=== PATIENT | male | born 1960 | race African-American/Black ===

== ENCOUNTER 2019-07-03 14:36 | Outpatient (CLI) | payer OTHER, SELFPAY ==
--- NOTE | ~2019-07-03 | CT_ITS ---
EXAMINATION: CT lung screening DATE: 07/03/2019 15:04 INDICATION: NICOTINE DEPENDENCE TECHNIQUE: Computed tomography (CT) of the chest was performed without intravenous contrast using a l ow-dose lung cancer screening protocol. Patient was scanned in the prone position. Additional 3D ty nstructions utilizing coronal maximum intensity projection (MIP) were performed. Automated exposure c ontrol and iterative reconstruction technique were employed. The dose-length product was 261.32 mGy-c m. COMPARISON: None FINDINGS: Calcified nodule in the right middle lobe along with calcified right hilar and mediastinal lymph node s and a small splenic obscuration, all consistent with old granulomatous disease. Lungs are otherwise clear with no other pulmonary nodules, pneumonia, pulmonary edema or pleural effusion. Heart size is normal. Small amount of atherosclerotic coronary artery calcification. No pericardial effusion. Thor acic aorta is normal. No pathologically enlarged thoracic lymphadenopathy. Visualized upper abdomen i s unremarkable. Moderate disc height loss with vacuum phenomena at T6-T7. Otherwise minimal to mild d egenerative skeletal changes. IMPRESSION: 1. Lung-RADS category 1: Negative. Continue annual screening with noncontrast low-dose chest CT in 12 months. Reviewed, dictated and finalized at location A. NEY BUILDER BRICK IMPRESSION: 1. Lung-RADS category 1: Negative. Continue annual screening with noncontrast l ow-dose chest CT in 12 months.
== END 2019-07-03 14:37 | disposition home or self-care (01) ==
LOC: ANHIMG 14:45
PROVIDERS: PCP Family Medicine; Visit Provider Nurse Practitioner Family
DX: Z12.2 Encounter for screening for malignant neoplasm of respiratory organs (principal); Z87.891 Personal history of nicotine dependence
CPT/HCPCS: G0297

== ENCOUNTER 2019-07-23 08:27 | Outpatient (CLI) | payer OTHER, SELFPAY ==
--- NOTE | 2019-07-23 | ECHO_ITS ---
Patient Info Name: Amador Blanchard Age: 59 years : 1960 Gender: Male Ht: 75 in Wt: 245 lbs BSA: 2.45 m2 HR: 74 bpm BP: 153 / 108 mmHg Heart Rhythm: Sinus Rhythm Technical Quality: Fair Exam Date: 07/23/2019 9:06 AM Exam Location: [facility] Patient Status: Outpatient Admit Date: 07/23/2019 Staff Ordering Physician: Sana, Amanda Mak APRN Blood Splatter Analyst: Lilian Keene RDCS Attending Provider: Amelie, Amanda Mak APRN Referring Physician: Sana ROSALES; Exam Type: CA echo doppler color flow Study Info Indications I11.0 - Hypertensive heart disease with heart failure Complete two-dimensional, color flow and Doppler transthoracic echocardiogram is performed. Summary 1. Left ventricular chamber dimension is mildly enlarged. 2. Left ventricular systolic function is mildly reduced, estimated at 50-55%. 3. There is mildly increased left ventricular wall thickness. 4. Left ventricular septal wall motion is normal. 5. The left ventricular diastolic function is normal. 6. Right ventricular chamber dimension is mildly enlarged. 7. Left atrial chamber dimension is mildly enlarged. 8. There is mild pulmonic regurgitation. 9. Mild pulmonary hypertension, estimated pulmonary arterial systolic pressure is 43 mmHg. 10. There is mild tricuspid valve regurgitation. 11. There is mild mitral valve regurgitation. 12. There is mild aortic valve regurgitation. 13. The aortic root size at the sinus of Valsalva is mildly dilated. Left Ventricle Left ventricular chamber dimension is mildly enlarged. Left ventricular systolic function is mildly reduced, estimated at 50-55%. There is mildly increased left ventricular wall thickness. Left ventricular septal wall motion is normal. The left ventricular diastolic function is normal. Right Ventricle Right ventricular chamber dimension is mildly enlarged. Right ventricular systolic function is normal. Left Atria Left atrial chamber dimension is mildly enlarged. Right Atria Right atrial chamber dimension is normal. Atrial Septum Intact interatrial septum visualized by color flow imaging. Aortic Valve The aortic valve is trileaflet. There is no aortic valve sclerosis. There is no aortic valve stenosis. There is mild aortic valve regurgitation. Pulmonic Valve The pulmonic valve is normal. There is no pulmonic valve stenosis. There is mild pulmonic regurgitation. Mitral Valve The mitral valve has normal leaflets. There is no mitral valve stenosis. There is mild mitral valve regurgitation. Tricuspid Valve The tricuspid valve leaflets are normal. There is no significant tricuspid valve stenosis. There is mild tricuspid valve regurgitation. Mild pulmonary hypertension, estimated pulmonary arterial systolic pressure is 43 mmHg. Pericardium/Pleural The pericardium appears normal. There is trivial pericardial effusion. Aorta The aortic root size at the sinus of Valsalva is mildly dilated. Left Ventricular Outflow Tract Name Value Normal LVOT 2D LVOT Diameter 2.1 cm LVOT Doppler LVOT Peak Velocity 103 cm/s
--- NOTE | 2019-07-23 | EST_ITS ---
Patient Info Name: Amador Blanchard Age: 59 years : 1960 Gender: Male Ht: 75 in Wt: 250 lbs BSA: 2.48 m2 HR: 62 bpm BP: 139 / 99 mmHg Heart Rhythm: Sinus Rhythm Exam Date: 07/23/2019 10:18 AM Exam Location: [facility] Stress Admit Date: 07/23/2019 Staff Attending Provider: TASHA ANNE NP Referring Physician: CONNIE Hood Amanda Mak; Exercise Technologist: Lilian Keene RDCS Nurse: Tasha Anne, ANP, ACNP- Exam Type: CA stress test treadmill Study Info Indications R07.9 - Chest pain, unspecified A treadmill exercise stress test was performed. Summary 1. Please correlate with nuclear medicine images, reported separately. 2. Poor exercise tolerance. 3. Sub maximal exercise stress test as he was only able to complete 79% of maximum predicted heart rate for age. Borderline ST segment depressions inferiorly were seen. 4. Hypertensive blood pressure response. 5. Due to his borderline EKG abnormalities and with submaximal workload and poor exercise capacity, consider repeating ischemic evaluation using a different modality such as Lexiscan myocardial perfusion study. Protocol: Thom Stress ECG Details Stage: REST Duration (min): 10 min : 26 sec Speed (mph): 0.0 Grade (%): 0 HR (bpm): 73 SBP (mmHg): 139 DBP (mmHg): 99 METS: --- Stage: REST Duration (min): 14 min : 13 sec Speed (mph): 0.0 Grade (%): 0 HR (bpm): 76 SBP (mmHg): 139 DBP (mmHg): 99 METS: --- Stage: STAGE 1 Duration (min): 1 min : 0 sec Speed (mph): 1.7 Grade (%): 10 HR (bpm): 107 SBP (mmHg): 139 DBP (mmHg): 99 METS: --- Stage: STAGE 1 Duration (min): 2 min : 0 sec Speed (mph): 1.7 Grade (%): 10 HR (bpm): 124 SBP (mmHg): 139 DBP (mmHg): 99 METS: --- Stage: STAGE 1 Duration (min): 2 min : 41 sec Speed (mph): 1.7 Grade (%): 10 HR (bpm): 123 SBP (mmHg): 197 DBP (mmHg): 117 METS: --- Stage: RECOVERY Duration (min): 0 min : 19 sec Speed (mph): 0.0 Grade (%): 0 HR (bpm): 122 SBP (mmHg): 197 DBP (mmHg): 117 METS: --- Stage: RECOVERY Duration (min): 1 min : 19 sec Speed (mph): 0.0 Grade (%): 0 HR (bpm): 95 SBP (mmHg): 199 DBP (mmHg): 98 METS: --- Stage: RECOVERY Duration (min): 2 min : 19 sec Speed (mph): 0.0 Grade (%): 0 HR (bpm): 86 SBP (mmHg): 199 DBP (mmHg): 98 METS: --- Stage: RECOVERY Duration (min): 3 min : 19 sec Speed (mph): 0.0 Grade (%): 0 HR (bpm): 88 SBP (mmHg): 186 DBP (mmHg): 96 METS: --- Stage: RECOVERY Duration (min): 4 min : 19 sec Speed (mph): 0.0 Grade (%): 0 HR (bpm): 83 SBP (mmHg): 186 DBP (mmHg): 96 METS: --- Stage: RECOVERY Duration (min): 5 min : 19 sec Speed (mph): 0.0 Grade (%): 0 HR (bpm): 86 SBP (mmHg): 172 DBP (mmHg): 98 METS: --- Stage: RECOVERY Duration (min): 6 min : 19 sec Speed (mph): 0.0 Gr
== END 2019-07-23 08:28 | disposition home or self-care (01) ==
PROVIDERS: PCP Family Medicine; Visit Provider Nurse Practitioner Family
DX: I11.0 Hypertensive heart disease with heart failure (principal); R07.9 Chest pain, unspecified; I08.3 Combined rheumatic disorders of mitral, aortic and tricuspid valves
CPT/HCPCS: 93017; 93306

== ENCOUNTER 2020-02-18 12:19 | Outpatient (CLI) | payer OTHER, SELFPAY ==
[2020-02-18 12:42] LABS: Basophils Percent Auto 0.6 % (0.2-1.2); Eosinophils Absolute Auto 0.1 K/mm3 (0-0.3); Eosinophils Percent Auto 1.7 % (0-4.4); Hematocrit 46.4 % (42.0-52.0); Immature Granulocyte Absolute 0.02 K/mm3 (0.00-0.031); Immature Granulocyte Percent A 0.3 % (0-0.5); Lymphocytes Absolute Auto 1.82 K/mm3 (0.9-3.2); Lymphocytes Percent Auto 28.4 % (18.3-44.2); Mean Corpuscular HGB Conc 34.5 g/dl (32-36); Mean Corpuscular Hemoglobin 32.3 pg (26-34); Mean Corpuscular Volume 93.5 fl (80-100); Mean Platelet Volume 10.2 fl (7.4-10.4); Monocytes Absolute Auto 0.5 K/mm3 (0.1-0.6); Monocytes Percent Auto 8.3 % (2.6-8.5); Neutrophils Absolute Auto 3.9 K/mm3 (1.3-6.7); Neutrophils Percent Auto 60.7 % (45.5-73.1); Platelet Count Result 193 k/mm3 (150-375); Red Blood Count 4.96 M/mm3 (4.6-6.20); White Blood Count 6.4 K/mm3 (4.5-10.0)
[2020-02-18 12:53] LABS: Alanine Aminotransferase 40 U/L (4-50); Albumin Level 4.2 g/dL (3.5-5.1); Alkaline Phosphatase 55 U/L (38-126); Anion Gap 4 mmol/L (8-16); Aspartate Amino Transferase 38 U/L (17-59); Bilirubin,Total 0.7 mg/dL (0.2-1.3); Blood Urea Nitrogen 8 mg/dL (9-20); Calcium 9.3 mg/dL (8.4-10.2); Carbon Dioxide 31 mmol/L (22-30); Chloride 102 mmol/L (98-107); Cholesterol 138 mg/dL (0-200); Estimated Glomerular Filt Rate > 60; Glucose 105 mg/dL (75-110); HDL Direct 43 mg/dL; Potassium 3.9 mmol/L (3.4-5.0); Sodium 137 mmol/L (137-145); Triglycerides 114 mg/dL (<150)
[2020-02-18 13:04] LABS: LDL Cholesterol Direct 70 mg/dL
[2020-02-18 13:13] LABS: Creatinine Urine 35.8 mg/dL
[2020-02-18 13:24] LABS: Prostate Specific Antigen 1.1 ng/mL (< OR = 4.0)
[2020-02-18 13:37] LABS: MALB Creatinine Ratio < 16.8 mg/g (0-30); Microalbumin Urine Random < 6.0 mg/L (0-16.7)
[2020-02-18 13:41] LABS: Free T4 Free Thyroxine 1.04 ng/mL (0.78-2.19); Vitamin D 25 Hydroxy 78.8 ng/mL
== END 2020-02-18 12:20 | disposition home or self-care (01) ==
PROVIDERS: PCP Family Medicine; Visit Provider Nurse Practitioner Family
DX: I50.32 Chronic diastolic (congestive) heart failure (principal); I11.0 Hypertensive heart disease with heart failure; E78.00 Pure hypercholesterolemia, unspecified; Z12.5 Encounter for screening for malignant neoplasm of prostate; R53.83 Other fatigue; Z00.00 Encounter for general adult medical examination without abnormal findings; Z13.0 Encounter for screening for diseases of the blood and blood-forming organs and certain disorders involving the immune mechanism; Z13.6 Encounter for screening for cardiovascular disorders; Z13.220 Encounter for screening for lipoid disorders; Z13.29 Encounter for screening for other suspected endocrine disorder; R80.9 Proteinuria, unspecified; E55.9 Vitamin D deficiency, unspecified
CPT/HCPCS: 36415; 80053; 80061; 82043; 82306; 84153; 84439; 84443; 84480; 85025; G0103

== ENCOUNTER → 2020-12-25 03:53 | Outpatient (CLI) | payer OTHER, SELFPAY ==
[2020-12-25 18:52] LABS: SARS-CoV-2 RNA PCR Negative
== END ==
PROVIDERS: PCP Family Medicine; Visit Provider Family Medicine
DX: R68.89 Other general symptoms and signs (principal); Z20.822 Contact with and (suspected) exposure to COVID-19
CPT/HCPCS: C9803; U0003; U0005

== ENCOUNTER 2021-06-18 15:35 | Outpatient (CLI) | payer OTHER, SELFPAY ==
--- NOTE | ~2021-06-18 | XR_ITS ---
EXAMINATION: XR chest 2V DATE: 06/18/2021 16:14 INDICATION: Mass of the left axilla TECHNIQUE: PA and lateral views of the chest are obtained. COMPARISON: 11/20/2014 FINDINGS: The lungs are free of acute opacities. There is no pleural effusion or pneumothorax. The ca rdiomediastinal silhouette is normal. There is moderate thoracic spondylosis. A calcified nodule of t he right middle lobe is consistent with old granulomatous disease. IMPRESSION: 1. No acute cardiopulmonary abnormality. Reviewed, dictated and finalized at location F. URETOR EXPERT
--- NOTE | ~2021-06-18 | CT_ITS ---
EXAMINATION: CT diagnostic chest w con DATE: 06/18/2021 16:29 INDICATION: Mass of the left axilla TECHNIQUE: Transaxial computed tomographic images of the chest were obtained after the administration of 75 cc of Omnipaque 350 intravenous contrast. The dose-length product (DLP) was 317.38 mGy-cm. Ite rative reconstruction was used. COMPARISON: 07/23/2019 FINDINGS: There is a 3.7 x 2.6 cm fat attenuation mass in the left trapezius which likely accounts fo r the left axillary mass in question. There is mild emphysema. Calcified pulmonary nodules and calcif ied right hilar and mediastinal lymph nodes are consistent with old granulomatous disease. The lungs are free of acute opacities. There is no pleural effusion or pneumothorax. No pathologically enlarged thoracic lymph nodes are identified. The heart size is normal. There is mild thoracic spondylosis. IMPRESSION: 1. Intramuscular lipoma of the left trapezius likely accounting for the left ax[facility] Reviewed, dictated and finalized at location F. CTORY COMPILER IMPRESSION: 1. Intramuscular lipoma of the left trapezius likely accounting for the left ax illary mass in question.
[2021-06-18 16:22] LABS: Estimated Glomerular Filt Rate > 60
== END 2021-06-18 15:36 | disposition home or self-care (01) ==
PROVIDERS: PCP Family Medicine
DX: N63.32 Unspecified lump in axillary tail of the left breast (principal); M47.814 Spondylosis without myelopathy or radiculopathy, thoracic region
CPT/HCPCS: 71046; 71260; Q9967

== ENCOUNTER 2022-07-27 13:14 | Outpatient (CLI) | payer OTHER, SELFPAY ==
--- NOTE | 2022-07-27 | ECG_ITS ---
Measurements Intervals [place] Rate: 61 P: 74 WY: 179 QRS: 10 QRSD: 102 T: 38 QT: 417 QTc: 421 Interpretive Statements SINUS RHYTHM NORMAL ECG NO PREVIOUS ECG AVAILABLE FOR COMPARISON Electronically Signed On 07-27-2022 14:55:47 [facility] by Jon Alex D.O.
--- NOTE | 2022-07-27 | ECHO_ITS ---
Patient Info Name: Amador Blanchard Age: 62 years : 1960 Gender: Male Ht: 75 in Wt: 246 lbs BSA: 2.45 m2 HR: 70 bpm BP: 163 / 92 mmHg Heart Rhythm: Sinus Rhythm Exam Date: 07/27/2022 2:00 PM Exam Location: [facility] Patient Status: Outpatient Admit Date: 07/27/2022 Staff Ordering Physician: Laura, Peter Staley APRN Yeast Cake Cutter: Hugo Bernstein, KATIE, RT Attending Provider: Diandra, Peter Staley APRN Referring Physician: Laura NOLEN; Exam Type: CA echo doppler color flow Study Info Indications - lightheadedness - Left arm pain R42 - Dizziness and giddiness Complete two-dimensional, color flow and Doppler transthoracic echocardiogram is performed. Strain analysis performed. Summary 1. Complete two-dimensional, color flow and Doppler transthoracic echocardiogram is performed. 2. Left ventricular chamber dimension is normal. 3. Left ventricular systolic function is normal, estimated at 60-65%. 4. There is mildly increased left ventricular wall thickness. 5. Right ventricular systolic function is normal. 6. There is mild aortic valve regurgitation. 7. There is mild mitral valve regurgitation. 8. There is mild tricuspid valve regurgitation. 9. The aortic root size at the sinus of Valsalva is dilated. Left Ventricle Left ventricular chamber dimension is normal. Left ventricular systolic function is normal, estimated at 60-65%. There is mildly increased left ventricular wall thickness. Global longitudinal strain is normal at -19 %. Right Ventricle Right ventricular chamber dimension is normal. Right ventricular systolic function is normal. Left Atria Left atrial chamber dimension is normal. Right Atria Right atrial chamber dimension is normal. Atrial Septum Intact interatrial septum visualized by color flow imaging. Aortic Valve The aortic valve is trileaflet. There is no aortic valve stenosis. There is mild aortic valve regurgitation. Pulmonic Valve The pulmonic valve is not well visualized. Mitral Valve The mitral valve has normal leaflets. There is no mitral valve stenosis. There is mild mitral valve regurgitation. Tricuspid Valve There is mild tricuspid valve regurgitation. Pericardium/Pleural There is no pericardial effusion. Inferior Vena Cava Normal inferior vena cava with >50% collapse upon inspiration consistent with normal right atrial pressure, 3 mmHg. Aorta The aortic root size at the sinus of Valsalva is dilated. Left Ventricular Outflow Tract Name Value Normal LVOT 2D LVOT Diameter 2.1 cm LVOT Doppler LVOT Peak Gradient 3 mmHg LVOT Mean Gradient 2 mmHg LVOT VTI 23 cm LVOT VTI/AV VTI Ratio 0.7 LVOT Stroke Volume 80 ml LVOT CO 4.9 l/min LVOT CI 2.0 l/min/m2 Mitral Valve Name Value Normal
== END 2022-07-27 13:15 | disposition home or self-care (01) ==
PROVIDERS: PCP Family Medicine; Visit Provider Nurse Practitioner Adult Health
DX: M54.6 Pain in thoracic spine (principal); R00.2 Palpitations; I34.0 Nonrheumatic mitral (valve) insufficiency; I35.1 Nonrheumatic aortic (valve) insufficiency; I36.1 Nonrheumatic tricuspid (valve) insufficiency
CPT/HCPCS: 93005; 93306

== ENCOUNTER 2023-10-02 15:28 | Outpatient (CLI) | payer OTHER, SELFPAY ==
--- NOTE | ~2023-10-02 | XR_ITS ---
EXAM: XR knee RT min 4V DATE: 10/02/2023 15:48 HISTORY: RT KNEE SWELLING; HX OF FLUID REMOVED OFF KNEE 3 YRS AGO . COMPARISON: None available. FINDINGS: Normal mineralization. No fracture or dislocation. No lytic or blastic lesion. Mild tricom partmental osteophytosis. Mild patellar enthesopathy. Trace joint fluid. No erosion or periosteal filiberto nge. Focal prepatellar soft tissue swelling. IMPRESSION: Particular bursitis. Mild tricompartmental osteoarthritis. Reviewed, dictated and finalized at location K.
== END 2023-10-02 15:29 | disposition home or self-care (01) ==
PROVIDERS: PCP Registered Nurse; Visit Provider Registered Nurse
DX: M17.11 Unilateral primary osteoarthritis, right knee (principal); M79.89 Other specified soft tissue disorders
CPT/HCPCS: 73564

== ENCOUNTER 2024-02-29 11:58 | Outpatient (CLI) | payer OTHER, SELFPAY ==
[2024-02-29 12:26] LABS: Hematocrit 43.3 % (42.0-52.0); Hemoglobin 14.8 g/dL (14.0-18.0); Mean Corpuscular HGB Conc 34.2 g/dl (32-36); Mean Corpuscular Hemoglobin 31.2 pg (26-34); Mean Corpuscular Volume 91.4 fl (80-100); Mean Platelet Volume 9.5 fl (7.4-10.4); Platelet Count Result 217 k/mm3 (150-375); Red Blood Count 4.74 M/mm3 (4.6-6.20); Red Cell Distribution Width 12.7 % (11.5-14.5); White Blood Count 7.3 K/mm3 (4.5-10.0)
[2024-02-29 12:41] LABS: Alanine Aminotransferase 42 U/L (6-50); Albumin Level 4.2 g/dL (3.5-5.1); Alkaline Phosphatase 59 U/L (38-126); Anion Gap 6 mmol/L (4-12); Aspartate Amino Transferase 41 U/L (17-59); Bilirubin,Total 0.9 mg/dL (0.2-1.3); Blood Urea Nitrogen 14 mg/dL (9-20); Carbon Dioxide 28 mmol/L (22-30); Chloride 103 mmol/L (98-107); Estimated Glomerular Filt Rate > 60; Glucose 87 mg/dL (65-110); Potassium 3.9 mmol/L (3.4-5.0); Sodium 137 mmol/L (137-145)
[2024-02-29 13:07] LABS: Prostate Specific Antigen 1.4 ng/mL (< OR = 4.0)
== END 2024-02-29 11:59 | disposition home or self-care (01) ==
LOC: ANHLAB 12:02
PROVIDERS: PCP Registered Nurse; Visit Provider Family Medicine
DX: E78.5 Hyperlipidemia, unspecified (principal); I10 Essential (primary) hypertension; Z12.5 Encounter for screening for malignant neoplasm of prostate
CPT/HCPCS: 36415; 80053; 84153; 85027; G0103

== ENCOUNTER 2024-06-05 15:36 | Outpatient (CLI) | payer OTHER, SELFPAY ==
--- NOTE | ~2024-06-05 | XR_ITS ---
EXAMINATION: XR lumbar spine 2-3V DATE: 06/05/2024 16:11 INDICATION: Low back pain. TECHNIQUE: 3 views of lumbar spine were obtained. COMPARISON: None. FINDINGS: There is 4 degrees levocurvature of lumbar spine. Vertebral body heights are normal. There is mildly decreased disc height at L3-L4. There is multilevel facet joint osteoarthritis, severe in l ower lumbar spine. IMPRESSION: 1. Mild lumbar spondylosis. Reviewed, dictated and finalized at location A. GHT ASSOCIATE IMPRESSION: 1. Mild lumbar spondylosis.
--- NOTE | ~2024-06-05 | XR_ITS ---
EXAMINATION: XR hip RT min 2V DATE: 06/05/2024 16:11 INDICATION: Right hip pain. TECHNIQUE: 2 views of right hip were obtained. COMPARISON: None. FINDINGS: Alignment is normal. No fracture. There is mild right hip osteoarthritis. IMPRESSION: 1. Mild right hip osteoarthritis. Reviewed, dictated and finalized at location A. [employer]
== END 2024-06-05 15:37 | disposition home or self-care (01) ==
LOC: ANHIMG 15:56
PROVIDERS: PCP Registered Nurse
DX: M47.816 Spondylosis without myelopathy or radiculopathy, lumbar region (principal); M16.11 Unilateral primary osteoarthritis, right hip; R29.6 Repeated falls
CPT/HCPCS: 72100; 73502

== ENCOUNTER 2024-10-30 10:37 | Outpatient (CLI) | payer OTHER, SELFPAY ==
[2024-10-30 11:20] LABS: Basophils Absolute Auto 0.1 K/mm3 (0.0-0.1); Basophils Percent Auto 0.7 % (0.2-1.2); Eosinophils Absolute Auto 0.1 K/mm3 (0-0.3); Eosinophils Percent Auto 1.6 % (0-4.4); Hematocrit 43.9 % (42.0-52.0); Immature Granulocyte Absolute 0.02 K/mm3 (0.00-0.031); Immature Granulocyte Percent A 0.3 % (0-0.5); Lymphocytes Absolute Auto 2.36 K/mm3 (0.9-3.2); Lymphocytes Percent Auto 34.5 % (18.3-44.2); Mean Corpuscular HGB Conc 34.2 g/dl (32-36); Mean Corpuscular Hemoglobin 30.6 pg (26-34); Mean Corpuscular Volume 89.6 fl (80-100); Mean Platelet Volume 10.1 fl (7.4-10.4); Monocytes Absolute Auto 0.5 K/mm3 (0.1-0.6); Monocytes Percent Auto 7.2 % (2.6-8.5); Neutrophils Absolute Auto 3.8 K/mm3 (1.3-6.7); Neutrophils Percent Auto 55.7 % (45.5-73.1); Platelet Count Result 215 k/mm3 (150-375); Red Cell Distribution Width 13.4 % (11.5-14.5); White Blood Count 6.8 K/mm3 (4.5-10.0)
[2024-10-30 11:32] LABS: Alanine Aminotransferase 29 U/L (6-50); Albumin Level 4.3 g/dL (3.5-5.1); Alkaline Phosphatase 58 U/L (38-126); Anion Gap 6 mmol/L (4-12); Aspartate Amino Transferase 39 U/L (17-59); Bilirubin,Total 0.7 mg/dL (0.2-1.3); Blood Urea Nitrogen 11 mg/dL (9-20); Calcium 9.2 mg/dL (8.4-10.2); Carbon Dioxide 28 mmol/L (22-30); Chloride 105 mmol/L (98-107); Cholesterol 173 mg/dL (0-200); Estimated Glomerular Filt Rate > 60; Glucose 90 mg/dL (65-110); HDL Direct 52 mg/dL; Potassium 3.6 mmol/L (3.4-5.0); Sodium 139 mmol/L (137-145); Total Protein 7.7 g/dL (6.3-8.2); Triglycerides 78 mg/dL (<150)
[2024-10-30 11:43] LABS: LDL Cholesterol Direct 86 mg/dL
[2024-10-30 12:03] LABS: Prostate Specific Antigen 1.2 ng/mL (< OR = 4.0)
[2024-10-30 12:41] LABS: Hepatitis C Virus Antibody Negative (Negative)
== END 2024-10-30 10:38 | disposition home or self-care (01) ==
LOC: ANHLAB 10:40
PROVIDERS: PCP Registered Nurse; Visit Provider Registered Nurse
DX: Z12.5 Encounter for screening for malignant neoplasm of prostate (principal); Z11.59 Encounter for screening for other viral diseases; I10 Essential (primary) hypertension; E78.5 Hyperlipidemia, unspecified
CPT/HCPCS: 36415; 80053; 80061; 84153; 85025; 86803